=== PATIENT | male | born 1960 | race Caucasian/White ===

== ENCOUNTER 2020-03-13 14:13 | Outpatient (CLI) | payer SELFPAY ==
--- NOTE | 2020-03-13 14:28 | MR_ITS ---
WS: [id number] MRI LUMBAR SPINE NONCONTRAST HISTORY: LOW BACK PAIN COMPARISON: None available. TECHNIQUE: Sagittal and axial multisequence imaging is submitted. Study is limited by motion artifact. L4 anterolisthesis by 14 mm. Severe disc space narrowing at L4-5 with endplate sclerosis and edema. The remaining discs and vertebral bodies are normal. Conus terminates normally at L1. L1-L2: Normal. L2-L3: Normal. L3-L4: Normal. L4-L5: Central canal has been preserved. There is severe bilateral subarticular recess and foraminal stenosis due to the L4 retrolisthesis. Marked facet joint arthritis. There is a small amount of edema in the facet joints and adjacent soft tissues. L5-S1: Normal. Paravertebral soft tissues are normal. MR/MR lumbar spine wo con* [id number] IMPRESSION: 1. Severe bilateral subarticular and foraminal stenosis at L4-5 secondary to a grade 2 spondylolisthesis of L4. 2. Facet joint edema and marrow edema at L4-5 indicating an acute inflammator y process. There may be some instability at this level. Bilateral pars defects are thought likely.
== END 2020-03-13 14:14 | disposition home or self-care (01) ==
PROVIDERS: Visit Provider Family Medicine
DX: M54.5 Low back pain (principal); M48.061 Spinal stenosis, lumbar region without neurogenic claudication; R60.0 Localized edema
CPT/HCPCS: 72148